=== PATIENT | male | born 1975 | race Caucasian/White ===

== ENCOUNTER 2022-01-29 09:43 | Day surgery (SDC) | payer OTHER ==
[2022-01-29] MEDS ORDERED: Depo-Medrol 40 MG/ML IM ONE (09:44)
[2022-01-29] MEDS ORDERED: Sodium Chloride 0.9(Preservative Free) 10 ML IJ ONE (09:44)
[2022-01-29] MEDS ORDERED: DIPRIVAN 200 MG/20 ML IV ONE (12:53)
[2022-01-29] MEDS ORDERED: Lactated Ringers 1,000 ML IV ONE (13:07)
--- NOTE | 2022-01-29 13:32 | XRAY ---
28 seconds fluoroscopy time in surgery for left L3-L5 transforaminal ANGELICA.
--- NOTE | 2022-01-29 13:33 | XRAY ---
Indication: Left L3-L5 transforaminal ANGELICA Intraoperative fluoroscopy provided for 28 seconds. 3 digital spot images submitted for interpretation demonstrates posterior needle tips projecting over the expected left L3 and L4 nerve roots. Small amount of contrast injected for needle tip placement. Correlate with intraoperative findings/report.
== END 2022-01-29 13:30 | disposition home or self-care (01) ==
LOC: SDC-PAIN 09:43
PROVIDERS: ATTEND Psychiatry & Neurology Pain Medicine
DX: M54.16 Radiculopathy, lumbar region (principal)
CPT/HCPCS: 64483; 64484; 72100; 77003; J1030; J2704; Q9966

== ENCOUNTER 2022-10-29 13:04 | Day surgery (SDC) | payer OTHER ==
[2022-10-29] MEDS ORDERED: Depo-Medrol 40 MG/ML IM ONE (13:05)
[2022-10-29] MEDS ORDERED: Sodium Chloride 0.9(Preservative Free) 10 ML IJ ONE (13:05)
[2022-10-29] MEDS ORDERED: DIPRIVAN 200 MG/20 ML IV ONE (15:43)
[2022-10-29] MEDS ORDERED: Lactated Ringers 1,000 ML IV ONE (17:32)
--- NOTE | 2022-10-29 19:22 | XRAY ---
Indication: Left L4-S1 transforaminal ANGELICA. Intraoperative fluoroscopy provided for 28 seconds. 4 digital spot image submitted for interpretation demonstrates posterior needle tips projecting over the left L4 and L5 nerve roots. Small amount of contrast injected for needle tip placement. Correlate with intraoperative findings/report.
--- NOTE | 2022-10-30 08:32 | XRAY ---
28 seconds of fluoroscopy was used in surgery for a left L4-S1 transforaminal ANGELICA.
== END 2022-10-29 16:10 | disposition home or self-care (01) ==
LOC: SDC-PAIN 13:04
PROVIDERS: ATTEND Psychiatry & Neurology Pain Medicine
DX: M54.16 Radiculopathy, lumbar region (principal); Z79.899 Other long term (current) drug therapy
CPT/HCPCS: 64483; 64484; 72100; 77003; J1030; J2704; Q9966

== ENCOUNTER 2022-11-26 14:07 | Day surgery (SDC) | payer OTHER ==
[2022-11-26] MEDS ORDERED: Sodium Chloride 0.9(Preservative Free) 10 ML IJ ONE (14:08)
[2022-11-26] MEDS ORDERED: LIDOCAINE HCL 1% 50 MG/5 ML VL PF IJ ONE (14:08)
[2022-11-26] MEDS ORDERED: Decadron 4 MG INJ IV ONE (14:08)
--- NOTE | 2022-11-26 17:16 | XRAY ---
Indication: Cervical ANGELICA. Intraoperative fluoroscopy provided for 1 minutes 5 seconds. 4 digital spot image submitted for interpretation demonstrates posterior needle tip projecting at the cervical thoracic junction. Small amount of contrast injected for needle tip placement. Correlate with intraoperative findings/report.
[2022-11-26] MEDS ORDERED: Lactated Ringers 1,000 ML IV ONE (18:00)
--- NOTE | 2022-11-27 10:46 | XRAY ---
1 minute and 5 seconds fluoroscopy time in surgery for cervical ANGELICA.
== END 2022-11-26 17:05 | disposition home or self-care (01) ==
LOC: SDC-PAIN 14:07
PROVIDERS: ATTEND Psychiatry & Neurology Pain Medicine
DX: M54.12 Radiculopathy, cervical region (principal)
CPT/HCPCS: 62321; 72040; 77003; J1100; J2001; Q9966

== ENCOUNTER 2024-11-23 12:50 | Day surgery (SDC) | payer OTHER ==
[2024-11-23] MEDS ORDERED: Depo-Medrol 40 MG/ML IM ONE (12:51)
[2024-11-23] MEDS ORDERED: Sodium Chloride 0.9(Preservative Free) 10 ML IJ ONE (12:51)
[2024-11-23] MEDS ORDERED: propofoL IV ONE (14:40)
--- NOTE | 2024-11-23 15:22 | XRAY ---
9 seconds of fluoroscopy was used in surgery for a caudal ANGELICA.
--- NOTE | 2024-11-23 16:30 | XRAY ---
Indication: Caudal ANGELICA. Intraoperative fluoroscopy provided for 9 seconds. 2 digital spot images submitted for interpretation demonstrates caudal needle tip projecting mid sacrum. Small amount of contrast injected for needle tip placement. Correlate with intraoperative findings/report.
== END 2024-11-23 15:16 | disposition home or self-care (01) ==
LOC: SDC-PAIN 12:50
PROVIDERS: ATTEND Psychiatry & Neurology Pain Medicine
DX: M54.16 Radiculopathy, lumbar region (principal)
CPT/HCPCS: 72220; 77003; J2704